=== PATIENT | female | born 1955 | race Hispanic/Latino ===

== ENCOUNTER → 2019-01-16 | Day surgery (SDC) | payer OTHER ==
[~2019-01-16] MED LIST: AMLODIPINE BESYL5 MG PO; CLOBETASOL PROP15 G1 TOP; FENTANYL CITRATE/PF 100MCG/2 ML INJ ONE; HYDROCORTISONE30 GM TOP; MIDAZOLAM HCL 2 MG/2 ML VIAL ONE; PEPCID20 MG PO; PRAVACHOL40 MG PO; PROPOFOL IV EMULSION 10 MG/ML 50 ML VIAL ONE; [UNRECOGNIZED DRUG - REMARK] PO
--- OUTSIDE RECORDS SUMMARY | 2019-01-16 07:58 | XMS REPORT ---
Author [facility] Address Unknown Phone Unavailable Care Team Providers Care Manager R D Name Role Phone Unavailable Unavailable Problems This patient has no known problems. Allergies, Adverse Reactions, Alerts This patient has no known allergies or adverse reactions. Medications This patient has no known medications. Encounters Start Date/Time End Date/Time Encounter Type Admission Type Attending [facility] Care Department Encounter ID 2018-10-27 00:00:00 2018-10-27 00:00:00 Outpatient [facility] [id number] 2018-09-26 00:00:00 2018-09-26 00:00:00 Outpatient [facility] [id number] 2018-09-26 00:00:00 2018-09-26 00:00:00 Outpatient [facility] [id number] 2018-09-22 00:00:00 2018-09-22 00:00:00 Outpatient [facility] [id number] 2018-09-12 10:01:13 2018-09-12 10:01:13 Outpatient [facility] [id number] 2018-09-11 00:00:00 2018-09-11 00:00:00 Outpatient [facility] [id number] 2018-08-29 00:00:00 2018-08-29 00:00:00 Outpatient [facility] [id number] 2018-08-29 00:00:00 2018-08-29 00:00:00 Outpatient [facility] [id number] 2018-08-15 08:56:01 2018-08-15 08:56:01 Outpatient [facility] [id number] 2018-08-10 09:17:51 2018-08-10 09:17:51 Outpatient [facility] [id number] 2018-08-10 00:00:00 2018-08-10 00:00:00 Outpatient [facility] [id number] 2018-08-10 00:00:00 2018-08-10 00:00:00 Outpatient [facility] [id number] 2018-07-11 00:00:00 2018-07-11 00:00:00 Outpatient [facility] [id number] 2018-06-20 09:38:50 2018-06-20 09:38:50 Outpatient [facility] [id number] 2018-06-20 09:05:09 2018-06-20 09:05:09 Outpatient [facility] [id number] 2018-02-28 11:16:33 2018-02-28 11:16:33 Outpatient [facility] [id number] 2018-02-07 15:23:46 2018-02-07 15:23:46 Outpatient [facility] [id number] 2018-01-24 10:25:39 2018-01-24 10:25:39 Outpatient [facility] [id number] 2017-10-25 00:00:00 2017-10-25 00:00:00 Outpatient [facility] [id number] 2017-09-15 00:00:00 2017-09-15 00:00:00 Outpatient [facility] [id number] 2017-08-23 16:26:52 2017-08-23 16:26:52 Outpatient [facility] [id number] 2017-08-23 14:41:12 2017-08-23 14:41:12 Outpatient [facility] [id number] 2017-08-19 14:16:30 2017-08-19 14:16:30 Outpatient [facility] [id number] 2017-08-02 10:50:16 2017-08-02 10:50:16 Outpatient [facility] [id number] 2017-06-07 09:08:45 2017-06-07 09:08:45 Outpatient [facility] [id number] 2017-05-20 13:56:35 2017-05-20 13:56:35 Outpatient [facility] [id number] 2017-05-03 13:38:38 2017-05-03 13:38:38 Outpatient [facility] [id number] 2017-04-22 00:00:00 2017-04-22 00:00:00 Outpatient [facility] [id number] 2017-04-21 08:25:18 2017-04-21 08:25:18 Outpatient [facility] [id number] 2017-04-21 08:13:16 2017-04-21 08:13:16 Outpatient [facility] [id number] 2017-04-12 09:51:28 2017-04-12 09:51:28 Outpatient [facility] [id number] 2017-04-12 00:00:00 2017-04-12 00:00:00 Outpatient [facility] [id number]
--- OUTSIDE RECORDS SUMMARY | 2019-01-16 07:58 | XMS REPORT ---
Author Author Admin, [place] Organization [facility] Address [address] [place] [address] Phone Allergies, Adverse Reactions, Alerts Allergy Name Reaction Description Start Date Severity Status Provider MACROBID rash, vomiting unclear if due to macrobid or doxycycline Severe Active Scar Jensen MD DOXYCYCLINE vomiting, rash unclear if doxycycline or macrodantin Severe Active Scar Jensen MD NEXIUM Critical Active Mable Mcnair DO IBUPROFEN stomach pain Moderate Active Scar Jensen MD Conditions or Problems Problem Name Problem Code Onset Date Status Entry Date Provider Comment Standard Description Annotate Hand pain, unspecified, R 729.5 Active Rossi Cobb VP Pain in limb Trigger finger of right middle finger 727.03 Active Rossi Cobb VP Trigger finger (acquired) Hypertension 401.9 Active Rossi Cobb VP Unspecified essential hypertension Knee pain, chronic, bilateral 719.46 Active Rossi Cobb VP Pain in joint involving lower leg Obesity 278.00 Active Rossi Cobb VP Obesity, unspecified Physical examination V70.0 Active Rossi Cobb VP Routine general medical examination at a health care facility Screening for diabetes mellitus V77.1 Active Rossi Cobb VP Screening for diabetes mellitus Screening for hepatitis C V73.89 Active Rossi Cobb VP Screening examination for other specified viral diseases Screening for vitamin D deficiency V77.99 Active Rossi Cobb VP Screening for other and unspecified endocrine, nutritional, metabolic, and immunity disorders Periorbital cellulitis 376.01 Active Mable Mcnair DO Orbital cellulitis Odynophagia 787.29 Active Scar Jensen MD Other dysphagia Pruritus 698.9 Active Scar Jensen MD Unspecified pruritic disorder Myalgia 729.1 Active Scar Jensen MD Myalgia and myositis, unspecified Hyperlipidemia 272.4 Active Scar Jensen MD Other and unspecified hyperlipidemia Colorectal screening V76.51 Active Scar Jensen MD Screening for malignant neoplasms of colon Gastroesophageal reflux 530.81 Active Scar Jensen MD Esophageal reflux Rash 782.1 Active Scar Jensen MD Rash and other nonspecific skin eruption upper chest Blepharitis 373.00 Active Roel Vitale MD Blepharitis, unspecified CONJUNCTIVITIS, ALLERGIC, SEASONAL 372.14 Active Roel Vitale MD Other chronic allergic conjunctivitis 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, 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 Active Roel Vitale MD 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 VITREOUS DETACHMENT, BILATERAL 379.21 Active Roel Vitale MD Vitreous degeneration Urinary tract infection ICD-599.0 Inactive Rossi Cobb VP Hand pain, right 729.5 Inactive Rossi Cobb VP Pain in limb Hand pain, right ICD-729.5 Inactive Rossi oCbb VP HYPERCHOLESTEROLEMIA ICD-272.0 Inactive Scar Jensen MD RETINAL DETACHMENT 361.9 Inactive Roel Vitale MD Unspecified retinal detachment Urinary tract infection 599.0 Resolved Rossi RADER Urinary tract infection, site not specified HYPERCHOLESTEROLEMIA 272.0 Resolved Scar Jensen MD Pure hypercholesterolemia Medication List Medication Instructions Start Date Stop Date Generic Name NDC Status Provider Patient Instruction GABAPENTIN 100 MG ORAL CAPSULE 1 by mouth three times a day GABAPENTIN 33923289342 Active Rossi CHANELP Active AMLODIPINE BESYLATE 5 MG ORAL TABLET 1 tab by mouth daily AMLODIPINE BESYLATE 59410609123 Active Rossi Cobb VP Active PEPCID 40 MG ORAL TABLET 1 by mouth twice a day FAMOTIDINE 52383627855 Active Rossi Cobb VP Active PRAVASTATIN SODIUM 20 MG ORAL TABLET 1 tab By Mouth Every pm PRAVASTATIN SODIUM 82711097814 Active Rossi Cobb VP Active CLOBETASOL PROPIONATE 0.05 % EXTERNAL OINTMENT apply Twice a Day for symptoms CLOBETASOL PROPIONATE 48461055538 Active Rossi Cobb VP Active HYDROCORTISONE 2.5 % EXTERNAL CREAM apply Twice a Day HYDROCORTISONE 89595300401 Active Rossi Cobb VP Active OPTIVAR SOLUTION AZELASTINE HCL SOLN 66453303098 Active Roel Vitale MD Active AMOXICILLIN 500 MG ORAL CAPSULE 1 tablet by mouth every 8 hours until gone AMOXICILLIN 500 MG ORAL CAPSULE 339355 AMOXICILLIN Inactive FLUCONAZOLE 150 MG ORAL TABLET 1 By Mouth daily for 2 days for yeast infection <FILIPINO LABEL> FLUCONAZOLE 150 MG ORAL TABLET 077580 FLUCONAZOLE Inactive KEFLEX 500 MG ORAL CAPSULE 1 by mouth 4 times a day KEFLEX 500 MG ORAL CAPSULE 896379 CEPHALEXIN Inactive NEXIUM 40 MG ORAL CAPSULE DELAYED RELEASE 1 by mouth every evening for 3 months NEXIUM 40 MG ORAL CAPSULE DELAYED RELEASE 308586 ESOMEPRAZOLE MAGNESIUM Inactive CEFTIN 500 MG ORAL TABLET 1 by mouth twice a day until all taken. CEFTIN 500 MG ORAL TABLET CEFUROXIME AXETIL Inactive MEDROL 4 MG ORAL TABLET THERAPY PACK use as directed. MEDROL 4 MG ORAL TABLET THERAPY PACK 629237 METHYLPREDNISOLONE Inactive TRAMADOL HCL 50 MG ORAL TABLET 1-2 tablets by mouth 4 times a day as needed for pain. TRAMADOL HCL 50 MG ORAL TABLET 084019 TRAMADOL HCL Inactive CLINDAMYCIN HCL 300 MG ORAL CAPSULE one tablet by mouth every 6 hours until all taken. CLINDAMYCIN HCL 300 MG ORAL CAPSULE 705966 CLINDAMYCIN HCL Inactive TRAMADOL HCL 50 MG ORAL TABLET 1-2 tablets by mouth 4 times a day as needed for pain TRAMADOL HCL 50 MG ORAL TABLET 500931 TRAMADOL HCL Inactive AMOXICILLIN 500 MG ORAL CAPSULE 1 by mouth 3 times a day until all taken. AMOXICILLIN 500 MG ORAL CAPSULE 477222 AMOXICILLIN Inactive PREVIDENT 5000 SENSITIVE 1.1-5 % DENTAL PASTE [place] with pea-sized amount Twice a Day, spit out excess, do not rinse. PREVIDENT 5000 SENSITIVE 1.1-5 % DENTAL PASTE SOD FLUORIDE-POTASSIUM NITRATE Inactive AMOXICILLIN 500 MG ORAL CAPSULE 1 by mouth 3 times a day AMOXICILLIN 500 MG ORAL CAPSULE 177419 AMOXICILLIN Inactive AMOXICILLIN 500 MG ORAL CAPSULE 1 tablet by mouth every 8 hours until gone AMOXICILLIN 36416982529 No Longer Active Rossi Cobb PRASANTH Active FLUCONAZOLE 150 MG ORAL TABLET 1 By Mouth daily for 2 days for yeast infection <FILIPINO LABEL> FLUCONAZOLE 03775580697 No Longer Active Rossi Martinokrystal RADER Active LISINOPRIL 10 MG ORAL TABLET 1 by mouth every day LISINOPRIL 30163536628 No Longer Active Scar Jensen MD Active KEFLEX 500 MG ORAL CAPSULE 1 by mouth 4 times a day CEPHALEXIN 34345455165 No Longer Active Rossi Martinokrystal RADER Active ACIPHEX 20 MG ORAL TABLET DELAYED RELEASE 1 By Mouth once a day RABEPRAZOLE SODIUM 71991611265 No Longer Active Scar Jensen MD Active NEXIUM 40 MG ORAL CAPSULE DELAYED RELEASE 1 by mouth every evening for 3 months ESOMEPRAZOLE MAGNESIUM 33562076230 No Longer Active Scar Camila WISEMAN Active TRIAMCINOLONE ACETONIDE 0.1 % EXTERNAL CREAM apply to affected area twice a day TRIAMCINOLONE ACETONIDE 74872004030 No Longer Active Scar Camila WISEMAN Active CEFTIN 500 MG ORAL TABLET 1 by mouth twice a day until all taken. CEFUROXIME AXETIL 38611255395 No Longer Active Daryl Pineda DDS Active MEDROL 4 MG ORAL TABLET THERAPY PACK use as directed. METHYLPREDNISOLONE 61393420533 No Longer Active Daryl Pineda DDS Active TRAMADOL HCL 50 MG ORAL TABLET 1-2 tablets by mouth 4 times a day as needed for pain. TRAMADOL HCL 53116152216 No Longer Active Daryl Pineda DDS Active CLINDAMYCIN HCL 300 MG ORAL CAPSULE one tablet by mouth every 6 hours until all taken. CLINDAMYCIN HCL 08991694845 No Longer Active Daryl Pineda DDS Active TRAMADOL HCL 50 MG ORAL TABLET 1-2 tablets by mouth 4 times a day as needed for pain TRAMADOL HCL 48498684301 No Longer Active Daryl Pineda DDS Active AMOXICILLIN 500 MG ORAL CAPSULE 1 by mouth 3 times a day until all taken. AMOXICILLIN 46504422930 No Longer Active Daryl Pineda DDS Active PREVIDENT 5000 SENSITIVE 1.1-5 % DENTAL PASTE [place] with pea-sized amount Twice a Day, spit out excess, do not rinse. SOD FLUORIDE-POTASSIUM NITRATE 53827918078 No Longer Active Daryl Pineda DDS Active AMOXICILLIN 500 MG ORAL CAPSULE 1 by mouth 3 times a day AMOXICILLIN 67247368189 No Longer Active Daryl Pineda DDS Active Vital Signs Date Name Value Unit Range Description blood pressure, diastolic 77 mm[Hg] BP flowers blood pressure, systolic 130 mm[Hg] BP sys height E&M 61 [in_us] Bdy height pulse rate E&M 72 /min Heart rate respiratory rate E&M 18 /min Resp rate temperature E&M 98.9 [degF] Body temperature weight E&M 198 [lb_av] Weight Measured blood pressure, diastolic 88 mm[Hg] BP flowers blood pressure, systolic 152 mm[Hg] BP sys height E&M 61 [in_us] Bdy height pulse rate E&M 80 /min Heart rate respiratory rate E&M 18 /min Resp rate temperature E&M 97.7 [degF] Body temperature weight E&M 199.20 [lb_av] Weight Measured blood pressure, diastolic 82 mm[Hg] BP flowers blood pressure, systolic 137 mm[Hg] BP sys pulse rate E&M 72 /min Heart rate blood pressure, diastolic 82 mm[Hg] BP flowers blood pressure, systolic 129 mm[Hg] BP sys height E&M 61 [in_us] Bdy height pulse rate E&M 75 /min Heart rate temperature E&M 98.2 [degF] Body temperature weight E&M 192 [lb_av] Weight Measured blood pressure, diastolic 82 mm[Hg] BP flowers blood pressure, systolic 133 mm[Hg] BP sys pulse rate E&M 62 /min Heart rate blood pressure, diastolic 89 mm[Hg] BP flowers blood pressure, systolic 162 mm[Hg] BP sys pulse rate E&M 71 /min Heart rate Diagnostic Results Date Name Value Unit Range Description Lab Report: CBC With Differential/Platelet, Comp. Metabolic Panel (14), ... - Urinalysis mucus on urinalysis Present Not Estab. Lab Report: CBC With Differential/Platelet, Comp. Metabolic Panel (14), ... - Chemistry thyroid stimulating hormone, serum 5.450 u[iU]/mL 0.450-4.500 Lab Report: CBC With Differential/Platelet, Comp. Metabolic Panel (14), ... - Urinalysis WBC urine on microscopy 0-5 /hpf {Cells}/[HPF] 0 - 5 Office Visit: Urinary Concerns - Chemistry beta HCG, urine, semiquantitative negative Lab Report: CBC With Differential/Platelet, Comp. Metabolic Panel (14), ... - Chemistry very low density lipoproteins 39 mg/dL 5-40 Lab Report: CBC With Differential/Platelet, Comp. Metabolic Panel (14), ... - Urinalysis epithelial cells, urine 0-10 /[LPF] 0 - 10 Lab Report: CBC With Differential/Platelet, Comp. Metabolic Panel (14), ... - Chemistry chloride, serum 104 mmol/L 96-106 urea nitrogen, blood 19 mg/dL 8-27 Office Visit: Urinary Concerns - Urinalysis leukocyte esterase, urine, by dipstick ++ Lab Report: CBC With Differential/Platelet, Comp. Metabolic Panel (14), ... - Hematology mean corpuscular hemoglobin concentration, RBC 33.0 G/DL % 31.5-35.7 Lab Report: CBC With Differential/Platelet, Comp. Metabolic Panel (14), ... - Serology antinuclear antibody Negative Negative Lab Report: CBC With Differential/Platelet, Comp. Metabolic Panel (14), ... - Hematology erythrocyte (RBC) count 4.59 X10E6/UL 10*6/mm3 3.77-5.28 Office Visit: Urinary Concerns - Urinalysis nitrite, urine, semiquantitative negative Lab Report: CBC With Differential/Platelet, Comp. Metabolic Panel (14), ... - Serology hepatitis C antibody, serum <0.1 0.0-0.9 Office Visit: Urinary Concerns - Urinalysis urine color yellow Lab Report: CBC With Differential/Platelet, Comp. Metabolic Panel (14), ... - Chemistry Absolute Neutrophils 3.0 X10E3/UL 10*3/uL 1.4-7.0 Office Visit: Urinary Concerns - Urinalysis bilirubin, urine negative Lab Report: CBC With Differential/Platelet, Comp. Metabolic Panel (14), ... - Chemistry LDL cholesterol, serum 183 mg/dL 0-99 urea nitrogen/creatinine ratio, serum 28 12-28 Lab Report: CBC With Differential/Platelet, Comp. Metabolic Panel (14), ... - Hematology mean corpuscular volume, RBC 85 fL 79-97 Lab Report: CBC With Differential/Platelet, Comp. Metabolic Panel (14), ... - Chemistry HDL cholesterol, serum 59 mg/dL >39 Lab Report: CBC With Differential/Platelet, Comp. Metabolic Panel (14), ... - Hematology monocytes as percent of blood leukocytes 8 % Not Estab. Lab Report: CBC With Differential/Platelet, Comp. Metabolic Panel (14), ... - Chemistry creatinine, serum 0.69 mg/dL 0.57-1.00 albumin/globulin ratio, serum 1.4 1.2-2.2 cholesterol, serum 281 mg/dL 678-733 0112/02/14 bilirubin, serum, total 0.3 mg/dL 0.0-1.2 Lab Report: CBC With Differential/Platelet, Comp. Metabolic Panel (14), ... - Hematology Eosinophil Absolute Count 0.2 X10E3/UL 10*3/uL 0.0-0.4 Office Visit: Urinary Concerns - Urinalysis appearance, urine clear blood in urine (hemoglobin) by dipstick + Lab Report: CBC With Differential/Platelet, Comp. Metabolic Panel (14), ... - Chemistry aspartate aminotransferase (SGOT), serum 17 U/L 0-40 Lab Report: CBC With Differential/Platelet, Comp. Metabolic Panel (14), ... - Hematology red blood cell distribution width 14.8 % 12.3-15.4 Lab Report: CBC With Differential/Platelet, Comp. Metabolic Panel (14), ... - Urinalysis urinalysis, microscopic examination See below: Lab Report: CBC With Differential/Platelet, Comp. Metabolic Panel (14), ... - Hematology leukocyte count, blood 5.7 X10E3/UL 10*3/mm3 3.4-10.8 Lab Report: CBC With Differential/Platelet, Comp. Metabolic Panel (14), ... - Urinalysis pH, urine, semiquantitative 7.0 5.0-7.5 Lab Report: CBC With Differential/Platelet, Comp. Metabolic Panel (14), ... - Chemistry potassium, serum 4.4 mmol/L 3.5-5.2 immature granulocytes, percentage of total cells, blood 0 % Not Estab. albumin, serum 4.1 g/dL 3.6-4.8 Lab Report: CBC With Differential/Platelet, Comp. Metabolic Panel (14), ... - Hematology lymphocyte count, blood, automated 2.0 X10E3/UL 10*3/mm3 0.7-3.1 hematocrit, blood 39.1 % 34.0-46.6 Lab Report: CBC With Differential/Platelet, Comp. Metabolic Panel (14), ... - Chemistry sodium, serum 141 mmol/L 134-144 Lab Report: Urine Culture, Routine, Result - Urinalysis urine culture No growth Lab Report: CBC With Differential/Platelet, Comp. Metabolic Panel (14), ... - Hematology neutrophils as percent of blood leukocytes 52 % Not Estab. basophils as percent of blood leukocytes 1 % Not Estab. Lab Report: CBC With Differential/Platelet, Comp. Metabolic Panel (14), ... - Chemistry specific gravity, body fluid 1.020 1.005-1.030 Office Visit: Urinary Concerns - Urinalysis protein, urine, semiquantitative (dipstick) negative Lab Report: CBC With Differential/Platelet, Comp. Metabolic Panel (14), ... - Chemistry RBC, Urine 3-10 /hpf /[HPF] 0 - 2 carbon dioxide, venous blood 24 mmol/L 20-29 nitrate, urine Negative Negative triglyceride, serum, fasting 195 mg/dL 0-149 calcium, serum 9.0 mg/dL 8.7-10.3 alanine aminotransferase (SGPT), serum 14 U/L 0-32 Lab Report: CBC With Differential/Platelet, Comp. Metabolic Panel (14), ... - Hematology mean corpuscular hemoglobin, RBC 28.1 pg 26.6-33.0 Lab Report: CBC With Differential/Platelet, Comp. Metabolic Panel (14), ... - Urinalysis bacteria, urine microscopy Few None seen/Few Lab Report: CBC With Differential/Platelet, Comp. Metabolic Panel (14), ... - Chemistry protein, total, serum 7.0 g/dL 6.0-8.5 alkaline phosphatase, serum 87 U/L 39-117 Lab Report: CBC With Differential/Platelet, Comp. Metabolic Panel (14), ... - Hematology hemoglobin, blood 12.9 g/dL 11.1-15.9 lymphocytes as percent of blood leukocytes 36 % Not Estab. Lab Report: CBC With Differential/Platelet, Comp. Metabolic Panel (14), ... - Chemistry hemoglobin A1C, blood, as % of total hemoglobin 5.5 % 4.8-5.6 Office Visit: Urinary Concerns - Urinalysis glucose, urine, semiquantitative negative Lab Report: CBC With Differential/Platelet, Comp. Metabolic Panel (14), ... - Genetics/fertility eGFR if 107 mL/min/1.73m2 >59 Lab Report: CBC With Differential/Platelet, Comp. Metabolic Panel (14), ... - Hematology basophil count, absolute 0.1 x10E3/uL 0.0-0.2 Lab Report: CBC With Differential/Platelet, Comp. Metabolic Panel (14), ... - Chemistry globulin, serum 2.9 1.5-4.5 Estimated Glomerular Filtration Rate (calc) 93 mL/min/1.73m2 >59 vitamin D 25-hydroxy, serum 24.7 ng/mL 30.0-100.0 Lab Report: CBC With Differential/Platelet, Comp. Metabolic Panel (14), ... - Basic Occult Blood, urine 1+ Negative Lab Report: CBC With Differential/Platelet, Comp. Metabolic Panel (14), ... - Chemistry creatine kinase, serum 113 U/L 24-173 Lab Report: CBC With Differential/Platelet, Comp. Metabolic Panel (14), ... - Hematology eosinophils as percent of blood leukocytes 3 % Not Estab. Lab Report: CBC With Differential/Platelet, Comp. Metabolic Panel (14), ... - Chemistry blood glucose, random 86 mg/dL 65-99 Office Visit: Urinary Concerns - Urinalysis urobilinogen, urine, semiquantitative (dipstick) negative Lab Report: CBC With Differential/Platelet, Comp. Metabolic Panel (14), ... - Hematology monocyte count, blood, automated 0.4 X10E3/UL 10*3/uL 0.1-0.9 platelet count 282 X10E3/UL 10*3/mm3 150-379 Office Visit: Urinary Concerns - Urinalysis ketones, urine, by test strip negative Encounters Date Encounter Provider Code Facility 07:24:32 CDT Ofc Vst, Est Level IV Rossi Cobb VP CPT-34680 [facility] 07:01:51 LOSS PREVENTION ASSOCIATE Ofc Vst, Est Level IV Rossi Cobb VP CPT-56877 [facility] 09:59:28 CDT Est Patient Exp Problem - 32482 Scar Jensen MD CPT-29820 [facility] 14:37:03 LOSS PREVENTION ASSOCIATE Ofc Vst, Est Level III Mable Tabby CARMEN CPT-09340 [facility] 09:09:00 LOSS PREVENTION ASSOCIATE Est Patient Detailed - 06119 Scar Jensen MD CPT-96334 [facility] 09:18:24 CDT Est Patient Detailed - 99845 Scar Jensen MD CPT-03390 [facility] 16:09:15 CDT Est Patient Exp Problem - 40462 cSar Jensen MD CPT-31655 [facility] 08:50:39 CDT New Patient Detailed - 33712 Scar Jensen MD CPT-76011 [facility] Procedures Code Procedure Name Date Entry Date Standard Description CPT-47722 Est Patient Intermediate Opt - 68904 16:25:30 CDT CPT-63946 Xray - Chest - PA & Lat - InHouse 10:04:28 CDT CPT-65445 Est Patient Intermediate Opt - 27484 17:01:37 CDT
--- OUTSIDE RECORDS SUMMARY | 2019-01-16 07:58 | XMS REPORT | Clinical Summary ---
Author Author [facility] Organization [facility] Address Unknown Phone Unavailable Care Team Providers Care Marketing And Outreach Coordinator Name Role Phone Andrew Rea MD PCP Allergies Comments Active Allergy Reactions Severity Noted Date [place] And Derivatives Swelling High 04/28/2012 Doxycycline Hyclate Rash 02/28/2018 Hair loss Amitriptyline 05/30/2013 Nitrofurantoin Rash 02/28/2018 Swelling in chest and back Moderate rash Omeprazole Rash, High 02/07/2018 Swelling Pineapple Swelling High 04/28/2012 Medications End Date Status Medication Sig Dispensed Refills Start Date Active famotidine (PEPCID) 20 mg Take 1 tablet 60 tablet 3 tabletIndications: by mouth 2 6 Gastroesophageal reflux times daily. disease without esophagitis Active triamcinolone (TRIDERM) Apply to 80 g 0 0.1 % topical affected area 6 creamIndications: Rash 2 times and other nonspecific daily. skin eruption Active gabapentin (NEURONTIN) Take 1 60 capsule 1 100 mg capsule by 6 capsuleIndications: Right mouth 3 times wrist pain daily. Active bnpuxpzuz-pxoyihst-delzay Take 30 mL by 1 Bottle 1 lelia-simethicone (MAALOX mouth every 4 7 +) 200 mg hours as SuspIndications: needed for Gastroesophageal reflux Pain. disease, esophagitis presence not specified Active triamcinolone (KENALOG) Apply 1 80 g 1 0.1 % Application 7 ointmentIndications: Rash to affected and other nonspecific area 2 times skin eruption daily. Active sucralfate (CARAFATE) 100 Take 10 mL by 420 mL 1 mg/mL oral mouth 4 times 7 suspensionIndications: daily. Gastroesophageal reflux disease without esophagitis Active traMADol (ULTRAM) 50 mg Take 1 tablet 30 tablet 0 tabletIndications: Acute by mouth 7 bilateral low back pain every 8 hours with bilateral sciatica as needed for Pain. Active cetirizine (ZYRTEC) 10 mg Take 1 tablet 90 tablet 1 tablet by mouth 7 daily. Active clobetasol (TEMOVATE) Apply to 30 g 2 0.05 % affected area 8 ointmentIndications: 2 times daily Photodermatitis To chest.. Active hydrocortisone 2.5 % Apply to 20 g 2 topical creamIndications: affected area 8 Photodermatitis 2 times daily To face.. Active famotidine (PEPCID) 20 mg Take 1 tablet 90 tablet 1 tabletIndications: by mouth 8 Gastroesophageal reflux daily. disease without esophagitis Active hydrOXYzine (ATARAX) 25 Take 1 tablet 30 tablet 1 mg tabletIndications: by mouth 3 8 Rash and other times daily nonspecific skin eruption as needed for Itching. Active amLODIPine (NORVASC) 2.5 Take 1 tablet 90 tablet 0 mg tabletIndications: by mouth 8 Essential hypertension daily. 06/20/2018 Discontinued hydrOXYzine (ATARAX) 25 Take 1 tablet 30 tablet 1 mg tabletIndications: by mouth 3 7 Rash and other times daily nonspecific skin eruption as needed for Itching. 06/20/2018 Discontinued famotidine (PEPCID) 20 mg Take 1 tablet 90 tablet 1 tabletIndications: by mouth 7 Gastroesophageal reflux daily. disease without esophagitis 06/20/2018 Discontinued clobetasol (TEMOVATE) Apply to 30 g 2 0.05 % affected area 7 ointmentIndications: 2 times daily Photodermatitis To chest.. 06/20/2018 Discontinued hydrocortisone 2.5 % Apply to 20 g 2 topical creamIndications: affected area 7 Photodermatitis 2 times daily To face.. 04/26/2018 Discontinued amLODIPine (NORVASC) 2.5 Take 1 tablet 30 tablet 1 mg tabletIndications: by mouth 8 Essential hypertension daily. 06/20/2018 Discontinued amLODIPine (NORVASC) 2.5 Take 1 tablet 90 tablet 0 201 mg tabletIndications: by mouth 8 Essential hypertension daily. 10/03/2018 Discontinued amLODIPine (NORVASC) 2.5 Take 1 tablet 90 tablet 0 201 mg tabletIndications: by mouth 8 Essential hypertension daily. Active Problems Problem Noted Date Bilateral carpal tunnel syndrome 02/07/2017 Right carpal tunnel syndrome 02/03/2017 Syncope 05/24/2015 Fall down stairs 05/24/2015 Seasonal allergies 02/03/2015 Helicobacter pylori (H. pylori) 02/28/2011 Knee pain, bilateral 02/25/2011 Numbness and tingling in both hands 02/25/2011 Vaginismus 01/12/2011 Heartburn 06/17/2010 Hyperlipemia 06/17/2010 Obesity 05/17/2010 Encounters Care Team Description Date Type Specialty Andrew Rea MD Essential hypertension 10/03/2018 Refill Family [facility] Andrew Rea MD 09/12/2018 Ancillary Radiology Procedure Andrew Rea MD Food allergy (Primary Dx); Atypical chest pain; Dietary counseling for Above / Below Normal BMI; Allergic rhinitis due to house dust mite; Breast cancer screening; Colon cancer screening; Screening for diabetes mellitus (DM); Screening for hyperlipidemia 08/10/2018 Office Visit Family Practice Andrew Rea MD Essential hypertension (Primary Dx); Gastroesophageal reflux disease without esophagitis; Leg varices; Photodermatitis; Rash and other nonspecific skin eruption; Shortness of breath; Colon cancer screening; Screening for breast cancer 06/20/2018 Office Visit Family [facility] Andrew Rea MD Essential hypertension 04/26/2018 Refill [facility] [place] Meehan ResidentMD Photodermatitis 03/29/2018 Refill Dermatology Andrew Rea MD Essential hypertension (Primary Dx); Urinary frequency; Recurrent UTI; Snoring 02/28/2018 Office Visit Family Practice Benny Meza Chi Fellow() Class 2 obesity with body mass index (BMI) of 38.0 to 38.9 in adult, unspecified obesity type, unspecified whether serious comorbidity present; Chronic GERD 02/08/2018 Orders Only Gastroenterology Ian Mabry MD Zhang, Hao Chi, Fellow() Class 2 obesity with body mass index (BMI) of 38.0 to 38.9 in adult, unspecified obesity type, unspecified whether serious comorbidity present (Primary Dx); Chronic GERD; Dyspepsia; Allergic drug rash 02/07/2018 Office Visit Gastroenterology after 01/15/2018 Immunizations Name Dates Previously Given Next Due Influenza A (H1N1) Vac 07/08/2010 Injection Influenza Vaccine 08/01/2015, 09/04/2014, 08/24/2013, 10/19/2012 Td Absorbed Preservative 06/04/2010 Free 7yr/older Im In Clinic Family History Medical History Relation Name Comments Arthritis Mother Hypertension Mother Arthritis Sister Cancer Sister leukemia Relation Name Status Comments Mother Sister Sister Social History Date Tobacco Use Types Packs/Day Years Used Never Smoker Smokeless Tobacco: Never Used Tobacco Cessation: Counseling Given: No Alcohol Use Drinks/Week oz/Week Comments No 0 Standard 0.0 drinks or equivalent Sex Assigned at Date Recorded Not on file Industry Job Start Date Occupation Not on file Not on file Not on file Travel End Travel History Travel Start No recent travel history available. Last Filed Vital Signs Time Taken Vital Sign Reading 08/10/2018 8:56 AM CDT Blood Pressure 130/64 08/10/2018 8:56 AM CDT Pulse 73 08/10/2018 8:56 AM CDT Temperature 36.6 C (97.9 F) 06/20/2018 8:49 AM CDT Respiratory Rate 19 - Oxygen Saturation - - Inhaled Oxygen - Concentration 08/10/2018 8:56 AM CDT Weight 88.5 kg (195 lb) 08/10/2018 8:56 AM CDT Height 154.9 cm (5' 1") 08/10/2018 8:56 AM CDT Body Mass Index 36.84 Plan of Treatment Health Maintenance Due Date Last Done Comments Cervical Cancer Scrn (3 01/12/2014 01/12/2011 Yrs) Colorectal Cancer Scrn 08/15/2019 08/15/2018, 11/08/2016, 06/18/2010 Annual (FIT/FOBT) Age 50 to 75 Breast Cancer Scrn 09/12/2019 09/12/2018, 10/29/2016, 04/28/2012, (Yearly) Additional history exists Procedures Comments Procedure Name Priority Date/Time Associated Diagnosis MAMMOGRAM BILAT SCREEN Routine 09/12/2018 Screening for breast DIGITAL 10:49 AM LINE TECHNICIAN cancer OCCULT BLOOD ICT Routine 08/15/2018 Colon cancer screening 10:46 AM CDT LIPID PROFILE Routine 08/15/2018 Screening for 9:00 AM CDT hyperlipidemia HEMOGLOBIN A1C Routine 08/15/2018 Screening for diabetes 9:00 AM CDT mellitus (DM) BASIC METABOLIC PANEL Routine 08/15/2018 Screening for diabetes 9:00 AM CDT mellitus (DM) Screening for hyperlipidemia ALT/AST Routine 08/15/2018 Screening for diabetes 9:00 AM CDT mellitus (DM) Screening for hyperlipidemia HEMOCCULT KIT FOR Routine 08/10/2018 Colon cancer screening SPECIMEN COLLECTION AT 9:20 AM CDT HOME ALLERGENS-FOOD Routine 06/20/2018 Rash and other 9:46 AM CDT nonspecific skin eruption ALLERGENS ZONE 6 Routine 06/20/2018 Rash and other 9:46 AM CDT nonspecific skin eruption UA MICROSCOPIC Routine 02/28/2018 11:38 AM CDT URINE CULTURE Routine 02/28/2018 Urinary frequency 11:38 AM CDT Recurrent UTI UA CHEMISTRIES Routine 02/28/2018 Urinary frequency 11:38 AM CDT Recurrent UTI H. PYLORI STOOL AG Routine 01/24/2018 11:21 AM CDT after 01/15/2018 Results * MAMMOGRAM BILAT SCREEN DIGITAL (09/12/2018 10:49 AM LINE TECHNICIAN) Impressions Performed At IMPRESSION: BENIGN SMS There is no mammographic evidence of malignancy. A 1 year screening mammogram is recommended. This document has been electronically signed. Aziza todd/jemal:09/12/2018 12:51:27 Flux Core Welder: April Harrington [facility] letter sent: Benign Exam Mammogram BI-RADS: 2 Benign G0202 z12.31 Narrative Performed At #[id number] - MAMMOGRAM BILAT SCREEN DIGITAL SMS BILATERAL DIGITAL SCREENING MAMMOGRAM WITH CAD: 09/12/2018 CLINICAL: Screening for malignancy. Comparison is made to exams dated:06/09/2010, 04/28/2012 [facility], and 10/29/2016 [facility]. The tissue of both breasts is predominately fatty. Current study was also evaluated with a Computer Aided Detection (CAD) system. There are benign calcifications in both breasts. No significant masses, calcifications, or other findings are seen in either breast. There has been no significant interval change. Procedure Note Interface, Rad/Mammog In - 09/12/2018 2:15 PM LINE TECHNICIAN #[id number] - MAMMOGRAM BILAT SCREEN DIGITAL BILATERAL DIGITAL SCREENING MAMMOGRAM WITH CAD: 09/12/2018 CLINICAL: Screening for malignancy. Comparison is made to exams dated: 06/09/2010, 04/28/2012 [facility], and 10/29/2016 [facility]. The tissue of both breasts is predominately fatty. Current study was also evaluated with a Computer Aided Detection (CAD) system. There are benign calcifications in both breasts. No significant masses, calcifications, or other findings are seen in either breast. There has been no significant interval change. IMPRESSION IMPRESSION: BENIGN There is no mammographic evidence of malignancy. A 1 year screening mammogram is recommended. This document has been electronically signed. Aziza todd/jemal:09/12/2018 12:51:27 Flux Core Welder: April Harrington [facility] letter sent: Benign Exam Mammogram BI-RADS: 2 Benign G0202 z12.31 Performing Organization Address [facility] Phone Number SMS * OCCULT BLOOD ICT (08/15/2018 10:46 AM CDT) Occult Blood Negative NEG LE STATION 3 ICT Specimen Stool Performing Organization Address [facility]/Zipcode Phone Number MISYS LE STATION 3 * HEMOGLOBIN A1C (08/15/2018 9:00 AM CDT) Hemoglobin A1c 5.7 4.3 - 6.1 % BT DIAGNOSTIC IMMUNOLOGY Est Average 116.9 mg/dL BT DIAGNOSTIC Gluc IMMUNOLOGY Specimen Blood Performing Organization Address [facility] Phone Number MISYS BT DIAGNOSTIC IMMUNOLOGY * LIPID PROFILE (08/15/2018 9:00 AM CDT) Cholesterol 272 mg/dL BT MAIN-STATION Comment: 1 REFERENCE RANGE: Desirable: <200 mg/dL Borderline: 200-240 mg/dL High Risk: >240 mg/dL Triglyceride 217 (H) <150 mg/dL BT MAIN-STATION Comment: 1 REFERENCE RANGE: Normal: <150 mg/dL Borderline High: 150-199 mg/dL High: 200-499 mg/dL Very High: >vr=194 mg/dL HDL 63 mg/dL BT MAIN-STATION Comment: 1 Increased CHD risk: <40 mg/dL Decreased CHD risk: >60 mg/dL LDL 166 mg/dL BT MAIN-STATION Comment: 1 REFERENCE RANGE: Optimal: <100 mg/dL Near Optimal: 100-129 mg/dL Borderline High: 130-159 mg/dL High: 160-189 mg/dL Very High: >qj=116 mg/dL Specimen Blood Performing Organization Address [facility] [place] Phone Number MISYS BT MAIN-STATION 1 * BASIC METABOLIC PANEL (08/15/2018 9:00 AM CDT) CO2 26 21 - 31 mmol/L BT MAIN-STATION 1 Chloride 103 98 - 107 mmol/L BT MAIN-STATION 1 Potassium 4.1 3.5 - 5.1 mmol/L BT MAIN-STATION 1 Sodium 138 136 - 145 mmol/L BT MAIN-STATION 1 Glucose 92 70 - 110 mg/dL BT MAIN-STATION 1 Urea Nitrogen 18 7 - 25 mg/dL BT MAIN-STATION 1 Creatinine 0.70 0.6 - 1.2 mg/dL BT MAIN-STATION 1 Anion Gap 9 BT MAIN-STATION 1 Calcium 9.0 8.6 - 10.3 mg/dL BT MAIN-STATION 1 GFR, Estimated >60 mL/min/1.73 m2 BT MAIN-STATION 1 GFR, Estim, >60 mL/min/1.73 m2 BT MAIN-STATION Afr-Am 1 Specimen Blood Performing Organization Address [facility] Phone Number MISYS BT MAIN-STATION 1 * ALT/AST (08/15/2018 9:00 AM CDT) ALT 11 7 - 52 U/L BT MAIN-STATION 1 AST 13 13 - 39 U/L BT MAIN-STATION 1 Specimen Blood Performing Organization Address [facility] Phone Number MISYS BT MAIN-STATION 1 * ALLERGENS ZONE 6 (06/20/2018 9:46 AM CDT) D Pteronyssinus 0.88 LABORATORY Reference range: Class II CORPORATION OF Unit: kU/L COLIN (A) D farinae Mite 1.89 LABORATORY Reference range: Class III CORPORATION OF Unit: kU/L COLIN (A) Cat Hair/Dander <0.10 LABORATORY Reference range: Class 0 CORPORATION OF Unit: kU/L COLIN Berm[place] Grass <0.10 LABORATORY Reference range: Class 0 CORPORATION OF Unit: kU/L COLIN Jovanni <0.10 LABORATORY Reference range: Class 0 CORPORATION OF Unit: kU/L COLIN Red Grass <0.10 LABORATORY Reference range: Class 0 CORPORATION OF Unit: kU/L COLIN Bahia Grass <0.10 LABORATORY Reference range: Class 0 CORPORATION OF Unit: kU/L COLIN Penicillium <0.10 LABORATORY Chrysogen Reference range: Class 0 CORPORATION OF Unit: kU/L COLIN Cladosp <0.10 LABORATORY herbarum Reference range: Class 0 CORPORATION OF Unit: kU/L COLIN Asper fumigatus <0.10 LABORATORY Reference range: Class 0 CORPORATION OF Unit: kU/L COLIN Mucor racemosus <0.10 LABORATORY Reference range: Class 0 CORPORATION OF Unit: kU/L COLIN Stemphylium <0.10 LABORATORY Herbarum Reference range: Class 0 CORPORATION OF Unit: kU/L COLIN [place], White <0.10 LABORATORY Reference range: Class 0 CORPORATION OF Unit: kU/L COLIN Elm, Amer,Wht <0.10 LABORATORY Reference range: Class 0 CORPORATION OF Unit: kU/L COLIN Dog Epithelia <0.10 LABORATORY Reference range: Class 0 CORPORATION OF Unit: kU/L COLIN Cockroach,Amr 0.34 LABORATORY Reference range: Class I CORPORATION OF Unit: kU/L COLIN (A) Alternaria <0.10 LABORATORY tenuis Reference range: Class 0 CORPORATION OF Unit: kU/L COLIN F041 [place] <0.10 LABORATORY White Reference range: Class 0 CORPORATION OF Unit: kU/L COLIN [place],Amer. <0.10 LABORATORY Reference range: Class 0 CORPORATION OF Unit: kU/L COLIN T071 [place], <0.10 LABORATORY Red Reference range: Class 0 CORPORATION OF Unit: kU/L COLIN Sweet Gum <0.10 LABORATORY Reference range: Class 0 CORPORATION OF Unit: kU/L COLIN King, Mountain <0.10 LABORATORY Reference range: Class 0 CORPORATION OF Unit: kU/L COLIN Ragweed, <0.10 LABORATORY Sht/Com Reference range: Class 0 CORPORATION OF Unit: kU/L COLIN W006 Mugwort <0.10 LABORATORY Reference range: Class 0 CORPORATION OF Unit: kU/L COLIN Plantain, <0.10 LABORATORY Icelandic Reference range: Class 0 CORPORATION OF Unit: kU/L COLIN W014 Pigweed <0.10 LABORATORY Rough Reference range: Class 0 CORPORATION OF Unit: kU/L COLIN W018 SHEEP <0.10 LABORATORY SORREL (DOCK) Reference range: Class 0 CORPORATION OF Unit: kU/L COLIN W020 Nettle <0.10 LABORATORY Reference range: Class 0 CORPORATION OF Unit: kU/L COLIN (note) Test(s) [id number] Cockroach, Cymro; [id number] [place], White; [id number] Sweet Gum were developed and had performance characteristics determined by [employer]. These tests have not been cleared or approved by the U.S. Food and Drug Administration. The FDA has determined that such clearance or approval is not necessary. These tests are used for clinical purposes. These should not be regarded as investigational or for research. Maple/[place] <0.10 LABORATORY Reference range: Class 0 CORPORATION OF Unit: kU/L COLIN Specimen Blood Performing Organization Address [facility] Phone Number [employer] OF [address] [place] [address] [facility] 145 * ALLERGENS-FOOD (06/20/2018 9:46 AM CDT) Shrimp 0.29 LABORATORY Reference range: Class 0/I CORPORATION OF Unit: kU/L COLIN (A) Codfish <0.10 LABORATORY Reference range: Class 0 CORPORATION OF Unit: kU/L COLIN Crab <0.10 LABORATORY Reference range: Class 0 CORPORATION OF Unit: kU/L COLIN Lobster <0.10 LABORATORY Reference range: Class 0 CORPORATION OF Unit: kU/L COLIN Tuna <0.10 LABORATORY Reference range: Class 0 CORPORATION OF Unit: kU/L COLIN Specimen Blood Performing Organization Address [facility] Phone Number [employer] OF [address] [phone] [facility] 145 * UA MICROSCOPIC (02/28/2018 11:38 AM CDT) WBC 0-1 0 - 5 /HPF LE STATION 3 RBC 1-3 0 - 4 /HPF LE STATION 3 Epithelial Cell <1 /HPF LE STATION 3 Performing Organization Address [facility] Phone Number MISYS LE STATION 3 * UA CHEMISTRIES (02/28/2018 11:38 AM CDT) Color Yellow LE STATION 3 Clarity Clear LE STATION 3 Spec [place] 1.020 1.001 - 1.035 LE STATION 3 pH 5.5 5 - 8 LE STATION 3 Protein Negative NEG LE STATION 3 Glucose Negative NEG LE STATION 3 Ketone Negative NEG LE STATION 3 Bilirubin Negative NEG LE STATION 3 Nitrate Negative NEG LE STATION 3 Urobilinogen 0.2 0.2 - 1.0 EU/dL LE STATION 3 Leukocyte Negative NEG LE STATION 3 Blood 1+ (A) NEG LE STATION 3 Specimen Urine Performing Organization Address [facility] [place] [facility] Phone Number MISYS LE STATION 3 * URINE CULTURE (02/28/2018 11:38 AM CDT) Spec Clean catch urine LE STATION 3 Description Order Comments None LE STATION 3 Culture Resembles mixed uro-genital BT MICROBIOLOGY emmy Report Status Final 03/02/2018 BT MICROBIOLOGY Specimen Urine clean catch - CLEAN CATCH URINE Performing Organization Address [facility] [place] [facility] Phone Number MISYS LE STATION 3 BT MICROBIOLOGY * H. PYLORI STOOL AG (01/24/2018 11:21 AM CDT) H pylori Ag Negative LABORATORY Stool Reference range: Negative CORPORATION OF COLIN Performing Organization Address [facility] Phone Number [employer] LABORAT[facility] CORPORATION OF [address] [place] [address] COLIN 145 after 01/15/2018
[2019-01-16 12:22] VITALS: BP 115/88
== END | disposition home or self-care (01) ==
LOC: OR 07:55
PROVIDERS: ATTEND Internal Medicine Gastroenterology
DX: K29.70 Gastritis, unspecified, without bleeding (principal); D12.4 Benign neoplasm of descending colon; D12.5 Benign neoplasm of sigmoid colon; K64.8 Other hemorrhoids; K29.80 Duodenitis without bleeding; K21.0 Gastro-esophageal reflux disease with esophagitis; K44.9 Diaphragmatic hernia without obstruction or gangrene; R19.7 Diarrhea, unspecified; R07.9 Chest pain, unspecified; I10 Essential (primary) hypertension; I20.9 Angina pectoris, unspecified; F41.9 Anxiety disorder, unspecified; Z88.1 Allergy status to other antibiotic agents; Z88.8 Allergy status to other drugs, medicaments and biological substances; Z68.33 Body mass index [BMI] 33.0-33.9, adult
CPT/HCPCS: 43239; 45378; 45380; 45385; J2250